=== PATIENT | male | born 1985 | race African-American/Black ===

== ENCOUNTER 2017-11-26 12:58 | Inpatient (IN) | payer SELFPAY ==
[~2017-11-26] VITALS: Ht 170.2 cm; Wt 70.3 kg
[2017-11-26] MEDS ORDERED: IBUPROFEN 600MG TABLET PO STA (14:27)
[2017-11-26] MEDS ORDERED: ACETAMINOPHEN 325MG TABLET PO STA (14:27)
[2017-11-26 15:19] LABS: HEMATOCRIT. 38.5 % (42.0-52.0); MEAN CORPUSCULAR HEMOGLOBIN 29.3 pg (28.0-32.0); MEAN PLATELET VOLUME 8.2 fl (7.4-10.4); PLATELET 514 x1000/uL (130-400); RED BLOOD CELL COUNT 4.43 mill/uL (4.7-6.1); RED CELL DISTRIBUTION WIDTH 14.4 % (11.6-14.6)
[2017-11-26 15:21] LABS: CHLORIDE 94 mEq/L (98-107)
[2017-11-26] MEDS ORDERED: AZITHROMYCIN 500 MG in DEXT 5% WATER 250 ML IV ONE (16:00)
[2017-11-26] MEDS ORDERED: CEFTRIAXONE 1 G PREMIX 50 ML IV ONE (16:00)
[2017-11-26 16:40] LABS: PLATELET ESTIMATE INCREASED
[2017-11-26 22:37] VITALS: BP 115/81
[2017-11-27] VITALS: BP 121/77
[2017-11-27] MEDS ORDERED: CEFTRIAXONE 1 G PREMIX 50 ML IV SCH ×2 (00:45→16:00)
[2017-11-27] MEDS ORDERED: AZITHROMYCIN 500 MG in DEXT 5% WATER 250 ML IV SCH ×2 (00:45→18:00)
[2017-11-27] MEDS: ACETAMINOPHEN 325MG TABLET PO PRN ×3 (01:24→23:17)
[2017-11-27 04:00] VITALS: BP 118/61
[2017-11-27 08:00] VITALS: BP 125/78
[2017-11-27] MEDS: GUAIFENESIN-DM 200MG-20MG/10ML UDC PO PRN ×3 (10:14→23:17)
[2017-11-27] MEDS ORDERED: IPRATROPIUM/ALBUTEROL 0.5-3(2.5)MG/3ML NEB HHN PRN ×2 (10:45→11:00)
[2017-11-27 12:00] VITALS: BP 116/70
[2017-11-27] MEDS: CLINDAMYCIN HCL 150MG CAPSULE PO SCH (12:31)
[2017-11-27 14:22] LABS: CLARITY URINE CLEAR (CLEAR); COLOR URINE YELLOW (YELLOW); KETONES URINE 1+ (NEGATIVE); LEUKOCYTE ESTERASE URINE NEGATIVE (NEGATIVE); NITRITE URINE NEGATIVE (NEGATIVE); OCCULT BLOOD URINE NEGATIVE (NEGATIVE); PROTEIN URINE NEGATIVE (NEGATIVE); SPECIFIC GRAVITY URINE 1.008 (1.005-1.030); UROBILINOGEN URINE 0.2 E.U./dL (0.2-1.0)
[2017-11-27 14:36] LABS: *AMPHETAMINES SCREEN URINE NEGATIVE (NEGATIVE); *BARBITURATES SCREEN URINE NEGATIVE (NEGATIVE); *BENZODIAZEPINES SCREEN URINE NEGATIVE (NEGATIVE); *COCAINE SCREEN URINE NEGATIVE (NEGATIVE); METHADONE URINE SCREEN NEGATIVE (NEGATIVE)
[2017-11-27 14:37] LABS: CANNABINOID URINE SCREEN PRESUMTIVE POSITIVE (NEGATIVE); OPIATES URINE SCREEN NEGATIVE (NEGATIVE); PHENCYCLIDINE URINE SCREEN NEGATIVE (NEGATIVE)
[2017-11-27 16:00] VITALS: BP 118/75
[2017-11-27 20:00] VITALS: BP 117/77
[2017-11-27] MEDS: IPRATROPIUM/ALBUTEROL 0.5-3(2.5)MG/3ML NEB HHN SCH (21:18)
[2017-11-27] MEDS: GUAIFENESIN 600MG ER TABLET PO SCH (23:24)
[2017-11-28] VITALS: BP 102/54
[2017-11-28] MEDS: CLINDAMYCIN HCL 150MG CAPSULE PO SCH ×3 (00:19→09:17)
[2017-11-28] MEDS: IPRATROPIUM/ALBUTEROL 0.5-3(2.5)MG/3ML NEB HHN SCH ×3 (01:49→13:37)
[2017-11-28 04:00] VITALS: BP 111/67
[2017-11-28 06:58] LABS: HEMATOCRIT. 37.1 % (42.0-52.0); HEMOGLOBIN. 12.5 g/dL (14.0-18.0); MEAN CORPUSCULAR HEMOGLOBIN 29.2 pg (28.0-32.0); MEAN CORPUSCULAR VOLUME 87.1 fL (80.0-94.0); MEAN PLATELET VOLUME 8.1 fl (7.4-10.4); PLATELET 523 x1000/uL (130-400); RED BLOOD CELL COUNT 4.26 mill/uL (4.7-6.1); RED CELL DISTRIBUTION WIDTH 14.3 % (11.6-14.6)
[2017-11-28 07:18] LABS: HIV SCREEN 4G Non Reactive (Non Reactive)
[2017-11-28 07:39] LABS: CHLORIDE 96 mEq/L (98-107)
[2017-11-28 08:00] VITALS: BP 138/70
[2017-11-28] MEDS: GUAIFENESIN 600MG ER TABLET PO SCH (08:19)
[2017-11-28] MEDS ORDERED: POTASSIUM CHLORIDE 20MEQ TABLET SR PO NR (10:30)
[2017-11-28 12:00] VITALS: BP 107/66
[2017-11-28 13:49] LABS: ATYPICAL LYMPHOCYTES 1; PLATELET ESTIMATE INCREASED
[2017-11-28] MEDS ORDERED: CLIN-123 PO (15:06)
[2017-11-28 16:15] VITALS: BP 107/66
[2017-11-28 16:42] VITALS: BP 107/66
== END 2017-11-28 16:30 | disposition home or self-care (01) | DRG 720 ==
LOC: ER 14:24 → EDBEDREQTM 18:48 → EDBEDREQ 18:48 → 6EST 19:48 → ENRESERV 19:48
PROVIDERS: ADMIT Internal Medicine; ATTEND Internal Medicine
DX: A41.9 Sepsis, unspecified organism (principal); J96.00 Acute respiratory failure, unspecified whether with hypoxia or hypercapnia; J85.1 Abscess of lung with pneumonia; E87.8 Other disorders of electrolyte and fluid balance, not elsewhere classified; E86.0 Dehydration; E87.6 Hypokalemia; E87.1 Hypo-osmolality and hyponatremia; D64.9 Anemia, unspecified; F12.90 Cannabis use, unspecified, uncomplicated; Z78.9 Other specified health status; Z82.49 Family history of ischemic heart disease and other diseases of the circulatory system; Z83.3 Family history of diabetes mellitus
CPT/HCPCS: 36415; 71045; 71250; 80048; 80305; 81003; 85025; 87040; 87070; 87116; 87186; 96365; 96367; 99285; J0456; J0696; J7060; J7620

== ENCOUNTER 2024-07-07 17:03 | Emergency (ER) | payer SELFPAY ==
[~2024-07-07] VITALS: Ht 172.7 cm; Wt 94.0 kg
[~2024-07-07 17:03] MED LIST: CLIN-26 PO
[2024-07-07 17:09] VITALS: O2SAT 95
[2024-07-07] MEDS ORDERED: METHYLPREDNISOLONE 40MG/ML INJ IV ONE (17:15)
[2024-07-07 17:49] VITALS: TEMP 37
[2024-07-07] MEDS: EPINEPHRINE 1:1000 1 MG/ML AMP IM NR (17:57)
[2024-07-07] MEDS: FAMOTIDINE 20MG/2ML VIAL IV NR (18:30)
[2024-07-07] MEDS: METHYLPREDNISOLONE SOD SUCC 125MG/2ML (ACT-O-VIAL) IV NR (18:30)
[2024-07-07] MEDS: DIPHENHYDRAMINE 50MG/ML VIAL IV ONE (18:30)
[2024-07-07] MEDS ORDERED: DIPH25CA83 MT (19:40)
[2024-07-07] MEDS ORDERED: EPIN0.3P3 IM (19:40)
[2024-07-07] MEDS ORDERED: P20 MT (19:40)
[2024-07-07 19:55] VITALS: BP 141/87; PULSE 81; RESP 22; O2SAT 99
== END 2024-07-07 20:11 | disposition home or self-care (01) ==
LOC: ER 17:03
DX: T78.3XXA Angioneurotic edema, initial encounter (principal); F12.90 Cannabis use, unspecified, uncomplicated; Z79.52 Long term (current) use of systemic steroids; X58.XXXA Exposure to other specified factors, initial encounter; Y93.89 Activity, other specified; Y92.89 Other specified places as the place of occurrence of the external cause; Y99.8 Other external cause status
CPT/HCPCS: 96374; 96375; 99284; J1200; J3490 ×2; J2919; Z7610 ×3